=== PATIENT | male | born 1955 | race Caucasian/White ===

== ENCOUNTER 2021-06-09 12:01 | Inpatient (IN) | payer MEDICARE ==
[2021-06-09 12:41] LABS: #Lymphocytes 2.2 thou/uL (1.20-3.40); #Monocytes 0.3 thou/uL (0.11-0.59); #Neutrophils 7.9 thou/uL (1.40-6.50); %Basophils 0.4 % (0.0-1.0); %Eosinophils 0.2 % (0.0-10.0); %Lymphocytes 21.2 % (21.0-51.0); %Monocytes 2.4 % (0.0-10.0); %Neutrophils 75.7 % (42.0-75.0); Hemoglobin 16.2 g/dL (14.0-18.0); Mean Corpuscular HGB CONC 33.1 g/dL (32.0-36.0); Mean Corpuscular Hemoglobin 32.9 pg (27.0-31.0); Mean Corpuscular Volume 99.2 fL (78.0-98.0); Mean Platelet Volume 7.6 fL (7.4-10.4); Platelet Count 233 thou/uL (130-400); RBC Distribution Width 11.6 % (11.5-14.5); Red Blood Cell (RBC) Count 4.92 mill/uL (4.70-6.10); White Blood Cell (WBC) Count 10.5 thou/uL (4.8-10.8)
[2021-06-09 12:43] LABS: Actual Bicarbonate (HCO3v) 16 mEq/L (22-28); Analyzer IN Cardio ER; Base Excess -14.6 mEq/L (-2.0 to +3.0); Calcium, Ionized (venous) 1.03 mmol/L (1.16-1.32); Chloride (VBG) 105 mmol/L (98-106); Hemoglobin (Hb) 14.8 g/dL (12.6-17.4); Potassium (VBG) 9.11 mmol/L (3.70-5.30)
[2021-06-09 12:44] LABS: pH (venous) 7.07 (7.32-7.43)
[2021-06-09] MEDS ORDERED: Calcium Chloride 1 GM/10 ML Abboject SYRINGE ONE (12:51)
[2021-06-09] MEDS ORDERED: Calcium Gluc 4.6 MEQ/10 ML (100 MG/ML) ONE (12:54)
[2021-06-09 13:07] LABS: ALT (SGPT) 69 U/L (8-55); AST (SGOT) 67 U/L (5-34); Albumin 4.5 g/dL (3.4-4.8); Alkaline Phosphatase 64 U/L (40-110); Anion Gap 28 mmol/L (10-20); BUN (Urea Nitrogen) 20 mg/dL (8.4-25.7); Bilirubin, Total 0.4 mg/dL (0.2-1.2); Calc. Creatinine Clearance 0 mL/min (70-130); Carbon Dioxide 14 mmol/L (23-31); Chloride 106 mmol/L (98-107); Globulin 3.8 g/dL (2.4-3.5); Glucose 66 mg/dL (80-115); Potassium 5.5 mmol/L (3.5-5.1); Protein, Total 8.3 g/dL (5.8-8.1); Sodium 142 mmol/L (136-145)
[2021-06-09] MEDS ORDERED: Albuterol Sulfate 2.5 mg/3 ml Neb ONE (13:07)
[2021-06-09] MEDS ORDERED: cefTRIAXone\\ROCEPHIN 1 GM VIAL ONE (13:29)
[2021-06-09] MEDS ORDERED: Ondansetron PF 4 MG/2 ML Vial ONE (13:38)
[2021-06-09] MEDS ORDERED: Azithromycin 500 MG VIAL ONE (14:20)
[2021-06-09] MEDS ORDERED: Acetaminophen 325 MG TAB PO PRN (14:37)
[2021-06-09] MEDS ORDERED: HYDROcodone/Acetaminophen 7.5/325 mg Tablet PO PRN (14:37)
[2021-06-09] MEDS ORDERED: Guaifenesin DM 100-10/5 ML UDCUP PO PRN (14:37)
[2021-06-09] MEDS ORDERED: Bisacodyl 5 MG TAB PO PRN (14:37)
[2021-06-09] MEDS ORDERED: HYDROcodone/Acetaminophen 5/325 mg Tablet PO PRN (14:37)
[2021-06-09] MEDS ORDERED: Ondansetron PF 4 MG/2 ML Vial IVP PRN (14:37)
[2021-06-09] MEDS ORDERED: cefTRIAXone\\ROCEPHIN 1 GM in Sodium Chloride 0.9% 100 ML IVPB SCH (14:45)
[2021-06-09] MEDS ORDERED: Piperacillin/Tazobactam 3.375 GM in Sodium Chloride 0.9% 100 ML IVPB SCH ×2 (15:00→16:00)
[2021-06-09] MEDS ORDERED: methylPREDNISolone Sod Succ/PF 125 MG/2 ML VIAL IVP SCH (15:30)
[2021-06-09] MEDS ORDERED: Enoxaparin Sodium 80 MG/0.8 ML SYRINGE ONE (16:00)
[2021-06-09 16:19] LABS: Analyzer IN Cardio ER; CO2 Tension 36.5 mmHg (35.0-45.0); Calcium, Ionized (arterial) 1.12 mmol/L (1.12-1.30); Carboxyhemoglobin (COHb) 0.2 gm% (0.0-3.0); Hemoglobin (Hb) 14.9 g/dL (14.0-18.0); O2 Tension (PaO2), arterial 62.9 mmHg (> 80.0); Potassium - ABG Lab 4.38 mmol/L (3.70-5.30)
[2021-06-09 17:06] LABS: CKMB 5.6 ng/mL (0-6.6)
[2021-06-09 17:09] LABS: SARS-CoV-2 NAA Rapid Test Not Detected (NotDetected)
[2021-06-09 17:25] VITALS: BMI 25.2
[2021-06-09] MEDS: Sodium Chloride 0.9% 1,000 ML IV SCH (18:13)
[2021-06-09] MEDS ORDERED: FLU VACC QS2021-22(65YR UP)/PF 240 MCG/0.7 ML SYRINGE IM ONE (18:15)
[2021-06-09 19:48] LABS: Lactic Acid 6.8 mmol/L (0.5-2.2)
[2021-06-09] MEDS: Famotidine 20 MG TAB PO SCH (21:04)
[2021-06-09] MEDS: Piperacillin/Tazobactam 3.375 GM in Sodium Chloride 0.9% 100 ML IVPB SCH (21:04)
[2021-06-09] MEDS ORDERED: Enoxaparin Sodium 80 MG/0.8 ML SYRINGE SC SCH (22:15)
[2021-06-09 22:18] LABS: Legionella Urinary Ag Negative (Negative)
[2021-06-09 22:21] LABS: Strep pneumo Urine Ag NEGATIVE (NEGATIVE)
[2021-06-10 04:34] LABS: Anion Gap 10 mmol/L (10-20); BUN (Urea Nitrogen) 19 mg/dL (8.4-25.7); Calc. Creatinine Clearance 75 mL/min (70-130); Calcium 8.2 mg/dL (7.8-10.44); Carbon Dioxide 23 mmol/L (23-31); Chloride 108 mmol/L (98-107); Glucose 252 mg/dL (80-115); Potassium 4.6 mmol/L (3.5-5.1); Sodium 136 mmol/L (136-145)
[2021-06-10] MEDS: Piperacillin/Tazobactam 3.375 GM in Sodium Chloride 0.9% 100 ML IVPB SCH ×3 (04:48→21:33)
[2021-06-10] MEDS: Sodium Chloride 0.9% 1,000 ML IV SCH (04:51)
[2021-06-10 06:48] LABS: Hemoglobin 12.6 g/dL (14.0-18.0); Mean Corpuscular HGB CONC 34.1 g/dL (32.0-36.0); Mean Corpuscular Volume 96.8 fL (78.0-98.0); Mean Platelet Volume 8.1 fL (7.4-10.4); Platelet Count 189 thou/uL (130-400); RBC Distribution Width 11.6 % (11.5-14.5); Red Blood Cell (RBC) Count 3.81 mill/uL (4.70-6.10); White Blood Cell (WBC) Count 17.6 thou/uL (4.8-10.8)
[2021-06-10 07:57] LABS: Band 30 % (5-11); Lymphocytes 5 % (21-51); MDiff Complete? YES; Monocytes 7 % (0-10); Neutrophil 57 % (42-75); Platelet Morphology Comment Appears Adequate; Polychromasia SLIGHT = 2-3 cells (100X) (0-2/hpf); Reactive Lymphocytes 1 % (0-10)
[2021-06-10] MEDS ORDERED: Enoxaparin Sodium 40 MG/0.4 ML SYRINGE SC SCH (09:00)
[2021-06-10] MEDS: Enoxaparin Sodium 80 MG/0.8 ML SYRINGE SC SCH ×2 (09:34→21:33)
[2021-06-10] MEDS: Famotidine 20 MG TAB PO SCH ×2 (09:34→21:33)
[2021-06-10] MEDS ORDERED: Azithromycin 500 MG in Sodium Chloride 0.9% 250 ML 250 ML IVPB SCH (14:00)
[2021-06-11] MEDS: Piperacillin/Tazobactam 3.375 GM in Sodium Chloride 0.9% 100 ML IVPB SCH (04:01)
[2021-06-11 04:55] LABS: Hemoglobin 11.8 g/dL (14.0-18.0); Mean Corpuscular Hemoglobin 33.3 pg (27.0-31.0); Mean Corpuscular Volume 97.9 fL (78.0-98.0); Mean Platelet Volume 8.4 fL (7.4-10.4); Platelet Count 168 thou/uL (130-400); RBC Distribution Width 11.7 % (11.5-14.5); Red Blood Cell (RBC) Count 3.54 mill/uL (4.70-6.10); White Blood Cell (WBC) Count 17.7 thou/uL (4.8-10.8)
[2021-06-11 05:22] LABS: Anion Gap 13 mmol/L (10-20); BUN (Urea Nitrogen) 17 mg/dL (8.4-25.7); Calc. Creatinine Clearance 88 mL/min (70-130); Calcium 8.2 mg/dL (7.8-10.44); Carbon Dioxide 20 mmol/L (23-31); Chloride 108 mmol/L (98-107); Glucose 134 mg/dL (80-115); Potassium 4.1 mmol/L (3.5-5.1); Sodium 137 mmol/L (136-145)
[2021-06-11 06:07] LABS: Band 20 % (5-11); Lymphocytes 4 % (21-51); MDiff Complete? YES; Monocytes 4 % (0-10); Neutrophil 72 % (42-75)
[2021-06-11] MEDS: Enoxaparin Sodium 80 MG/0.8 ML SYRINGE SC SCH (10:43)
[2021-06-11] MEDS: Famotidine 20 MG TAB PO SCH (10:43)
[2021-06-11 11:22] VITALS: BP 132/75; TEMP 98.1
== END 2021-06-11 12:40 | disposition home or self-care (01) | DRG 871 ==
LOC: ERS 12:01 → ERHOLD 14:37 → 2NO 17:11
PROVIDERS: ADMIT Hospitalist; ATTEND Hospitalist
DX: A41.9 Sepsis, unspecified organism (principal); J96.01 Acute respiratory failure with hypoxia; I26.99 Other pulmonary embolism without acute cor pulmonale; J69.0 Pneumonitis due to inhalation of food and vomit; F10.20 Alcohol dependence, uncomplicated; I10 Essential (primary) hypertension; Z87.891 Personal history of nicotine dependence; Z79.899 Other long term (current) drug therapy; Z83.6 Family history of other diseases of the respiratory system
CPT/HCPCS: 36415; 36416; 71045; 71275; 80048; 80053; 82553; 82805; 83605; 83735; 83880; 84484; 85025; 87040; 87449; 87899; 93005; 93970; 96365; 96366; 96367; 96372; 96375; J0456; J0610; J0696; J1650; J2405; J2543; J3490; J7050; J7611; U0002